=== PATIENT | male | born 1985 | race African-American/Black ===

== ENCOUNTER 2022-03-15 10:07 | Emergency (ER) | payer SELFPAY | END 2022-03-15 10:45 | disposition home or self-care (01) | LOC: BURERS 10:07 | DX: T81.49XA Infection following a procedure, other surgical site, initial encounter (principal); S61.313D Laceration without foreign body of left middle finger with damage to nail, subsequent encounter; L03.012 Cellulitis of left finger; F17.210 Nicotine dependence, cigarettes, uncomplicated; W23.0XXD Caught, crushed, jammed, or pinched between moving objects, subsequent encounter | CPT/HCPCS: 99282 ==